=== PATIENT | male | born 1965 | race Caucasian/White ===

== ENCOUNTER 2022-04-19 14:18 | Emergency (ER) | payer OTHER ==
[~2022-04-19] VITALS: Ht 177.8 cm; Wt 77.1 kg
[2022-04-19] MEDS ORDERED: REMERON30 MG PO (14:33)
[2022-04-19] MEDS ORDERED: DULOXETINE HCL60 MG PO (14:34)
[2022-04-19] MEDS ORDERED: GABAPENTIN800 MG PO (14:34)
[2022-04-19] MEDS ORDERED: MELOXICAM15 MG PO (14:35)
[2022-04-19] MEDS ORDERED: PRAZOSIN HCL1 MG PO (14:36)
[2022-04-19] MEDS ORDERED: MECLIZINE HCL25 MG PO (14:36)
[2022-04-19] MEDS ORDERED: METHYLPREDNISOLO4 M1 PO (18:06)
[2022-04-19] MEDS ORDERED: HYDROCODON-ACE1 EA11 PO (18:06)
== END 2022-04-19 18:16 | disposition home or self-care (01) ==
LOC: ED 14:18
DX: M16.11 Unilateral primary osteoarthritis, right hip (principal); M54.12 Radiculopathy, cervical region; Z79.899 Other long term (current) drug therapy
CPT/HCPCS: 73502; 99283-25; A9270; J8540

== ENCOUNTER 2023-11-10 05:45 | Day surgery (SDC) | payer OTHER ==
[~2023-11-10] VITALS: Ht 177.8 cm; Wt 86.4 kg
[2023-11-10] VITALS (7 sets, daily range): BP systolic 140–164; BP diastolic 69–95
[~2023-11-10 05:45] MED LIST: CYCLOBENZAPRINE10 MG PO; DULOXETINE HCL60 MG PO; GABAPENTIN800 MG PO; HYDROCODON-ACE1 EA11 PO; HYDROXYZINE HCL50 MG PO; LACTATED RINGER'S 1,000 ML IV SCH; LIPITOR20 MG; MECLIZINE HCL25 MG PO; MELOXICAM15 MG PO; METHYLPREDNISOLO4 M1 PO; PRAZOSIN HCL1 MG PO; REMERON30 MG PO; VENTOLIN HFA18 GM INH
[2023-11-10] MEDS ORDERED: LIDOCAINE HCL 2% 5 ML SDV ONE ×2 (06:52)
[2023-11-10] MEDS ORDERED: MIDAZOLAM HCL 2 MG/2 ML VIAL ONE (06:52)
[2023-11-10] MEDS ORDERED: ondansetron HCL 4 MG/2 ML VIAL ONE (06:52)
[2023-11-10] MEDS ORDERED: propofoL 200 MG/20 ML VIAL ONE ×3 (06:52→08:39)
[2023-11-10] MEDS ORDERED: BUPIVACAINE 0.75% IN DEXTROSE 2 ML AMP ONE (06:52)
[2023-11-10] MEDS ORDERED: OXYCODONE HCL 5 MG TAB PO SCH (07:00)
[2023-11-10] MEDS ORDERED: CEFAZOLIN SODIUM 2 GM/20 ML SYR IV SCH (07:00)
[2023-11-10] MEDS ORDERED: INTRA-ARTICULAR ANALGESIC INJECTION XX SCH (07:00)
[2023-11-10] MEDS ORDERED: TRANEXAMIC ACID 2,000 MG in SODIUM CHLORIDE 0.9% 100 ML IV SCH (07:00)
[2023-11-10] MEDS ORDERED: PANTOPRAZOLE SODIUM 40 MG TABEC PO SCH (07:00)
[2023-11-10] MEDS ORDERED: LIDOCAINE HCL 1% 5 ML SDV INJ ONE (07:00)
[2023-11-10] MEDS ORDERED: ondansetron HCL 4 MG TAB PO SCH (07:00)
[2023-11-10] MEDS ORDERED: IBLOOD GLUCOSE TEST STRIP 1 EA TEST VI PRN ×2 (07:00→07:30)
[2023-11-10] MEDS ORDERED: GABAPENTIN 600 MG TAB PO SCH (07:00)
[2023-11-10] MEDS ORDERED: HYDROmorphone HCL 1 MG/ML SYR IV PRN (07:30)
[2023-11-10] MEDS ORDERED: ondansetron HCL 4 MG/2 ML VIAL IV PRN (07:30)
[2023-11-10] MEDS ORDERED: NALOXONE HCL 0.4 MG SYR IV PRN ×2 (07:30→09:00)
[2023-11-10] MEDS ORDERED: fentaNYL citrate 50 MCG/ML SDV IV PRN (07:30)
[2023-11-10] MEDS ORDERED: PROCHLORPERAZINE EDISYLATE 10 MG/2 ML VIAL IV PRN (07:30)
[2023-11-10] MEDS ORDERED: droPERidol 5 MG/2 ML VIAL IV PRN (07:30)
[2023-11-10] MEDS ORDERED: LACTATED RINGER'S 1,000 ML IV ONE (08:09)
[2023-11-10] MEDS ORDERED: KETOROLAC TROMETHAMINE 15 MG/ML VIAL IV PRN (09:00)
[2023-11-10] MEDS ORDERED: OXYCODONE HCL 5 MG TAB PO PRN (09:00)
[2023-11-10] MEDS ORDERED: GABAPENTIN 300 MG CAP PO SCH (09:00)
[2023-11-10] MEDS ORDERED: SENNOSIDES 1 TAB PO SCH (09:00)
[2023-11-10] MEDS ORDERED: DULOXETINE HCL 30 MG CAP PO SCH (09:00)
[2023-11-10] MEDS ORDERED: OXYCODONE HCL5 MG PO (09:06)
[2023-11-10] MEDS ORDERED: XARELTO10 MG PO (09:07)
--- NOTE | 2023-11-10 09:27 | NUR ---
11/10/23 0927 Breanna Balderrama 0902- PT ARRIVES TO PACU NONAROUSABLE TO STIMULI. PT SNORING. PT NEEDING A JAW THRUST BY ANOTHER RN TO MAINTAIN PATENT AIRWAY. SNORING CLEARS WITH JAW THRUST. RESP EVEN AND UNLABORED. OXYGEN SAT HIGH 90'S TO 100% ON 6L VIA MASK. 0905- PT'S RIGHT JORGE HOSE AND FOOT PUMP PLACED. 0913- PT AROUSABLE TO STIMULI. PT UPDATED THAT HIS PROCEDURE IT OVER. PT NODS HIS HEAD BUT IS UNABLE TO KEEP HIS EYES OPEN. XRAY AT THE BEDSIDE TO COMPLETE PELVIS XRAY. 0916- DR. CHRIS AT THE BEDSIDE TO SEE POST PELVIS XRAY. 0917- OXYGEN TITRATED OFF. 09- CRYOCUFF PLACED TO PT'S RIGHT HIP WITH GOWN AND BATH TOWEL BETWEEN SKIN AND CRYOCUFF. THIS COMPLETE WITH ASSISTANCE FROM ANOTHER RN. PT IS ABLE TO TURN IN THE BED TO ASSIST WELL.
[2023-11-10] MEDS ORDERED: TRANEXAMIC ACID IN NACL,ISO-OS 1,000 MG/100 ML PIGGYBACK IV ONE (09:38)
--- NOTE | 2023-11-10 10:15 | NUR ---
MADI 5148-PT BACK TO ROOM FROM PACU ON . RECEIVED REPORT FROM LINDSEY LOPEZ. PT IS AWAKE. RESP EVEN AND UNLABORED. DENIES PAIN AND NAUSEA. DRESSING IS CLEAN, DRY AND INTACT. CRYO CUFF IN PLACE AND RUNNING. PT DRINKING WATER. PROVIDED PT WITH APPLESAUCE. NO OTHER NEEDS AT THIS TIME. DARLIN BATISTA ON. CALL LIGHT WITHIN REACH.
--- NOTE | 2023-11-10 10:55 | OR ---
[facility] [address] [place] [address] Signed DATE OF OPERATION: 11/10/2023 SURGEON: Torrey Cerda MD PREOPERATIVE DIAGNOSIS: Severe degenerative joint disease, right hip. POSTOPERATIVE DIAGNOSIS: Severe degenerative joint disease, right hip. PROCEDURE PERFORMED: Right total hip arthroplasty with Elie. KEY HOLDER: Regina Flowers PA-C. Regina was present and critical for all portions of procedure. ANESTHESIA: Spinal. BLOOD LOSS: 140 mL. IMPLANTS: Dariusz size 5 Insignia stem, 54 trident cup and -5 head. BRIEF HISTORY: Judson is a 58-year-old gentleman with progressive worsening of osteoarthritis. Risks and benefits of operative treatment were discussed with him. He elected to proceed. DESCRIPTION OF PROCEDURE: Once consent was obtained, he was taken to the operating room. After adequate anesthesia, he was placed on the operating room table in the left lateral decubitus position. All downside pressure points were well padded. Axillary roll was placed. The right hip was then prepped and draped in a standard sterile fashion. The pins for the Elie system were then placed in the posterior half of the iliac crest with some difficulty. The iliac crest itself was quite rounded and had a little bit of trouble getting the pins started. Once this was completed, the hip was approached through a standard anterolateral incision, carried through the skin and subcutaneous tissue. The IT band was divided longitudinally. The vastus lateralis was then divided from the tip Electronically Signed By: TORREY CERDA MD 11/10/23 1055 PATIENT NAME: JUDSON ESQUIVEL OPERATIVE REPORT DATE OF : 69 REPORT #: [id number] PHYSICIAN: TORREY CERDA MD PCP: CALLIE ORTIZ REPORT IS CONFIDENTIAL AND NOT TO BE RELEASED WITHOUT AUTHORIZATION [facility] [address] [place], [place] [address] Signed of the trochanter along the anterior margin the femur distally. Subperiosteally it was then elevated around to the level of the lesser trochanter. The capsule was split from the tip of the trochanter to the acetabular rim along with the gluteus medius at its anterior most portion. This was then peeled off the anterior neck and arthrotomy was completed. The posterior capsule was extremely thickened. A partial capsulotomy was performed. The hip was then dislocated quite easily and the femoral neck cut made one fingerbreadth above the lesser trochanter. The femoral head was passed off the table. The periacetabular soft tissue was removed and the acetabulum was registered with the computer. Once this was completed, the robot was brought in. The acetabulum was reamed in a single pass using a 54 reamer up to the pre-registered depth. Once this was accomplished, all soft tissue was cleared from the acetabulum. The cup was impacted and the single 6.5 screw was placed in the posterior superior quadrant. The acetabular liner was then impacted into position and attention was turned to the proximal femur. The proximal femur was opened using jessica cutter followed by the Olegario awl. The lateralized reamer was utilized and the proximal femur was broached starting with 0 going up to a 5. The 5 was found to be well fitting and was stable. The high offset neck and initially a 0 and then a -5 head were positioned. The hip was reduced. Leg lengths were found to be good. He had excellent stability and a negative Shuck test. The trials were dislocated and removed. The final stem was then impacted to the same level and a -5 head was impacted. The hip was again reduced and taken through range of motion and found to be good. The hip and soft tissue were then thoroughly irrigated with Surgiphor followed by normal saline. Ree-incisional soft tissues were injected with 100 mL of ropivacaine and Toradol mixture. The capsule was then closed using #2 FiberWire. The vastus and IT band layers were closed independently using #2 Stratafix, 0 Stratafix for the subcutaneous tissue and 3-0 Stratafix for the skin. The wound was sealed with LiquiBand and Steri-Strips and dressed with an Acticoat-7 dressing. He was awakened, taken to the recovery room in satisfactory condition. All sponge, needle, and instrument counts were correct. Torrey Cerda MD BA/MODL /[id number] Electronically Signed By: TORREY CERDA MD 11/10/23 1055 PATIENT NAME: JUDSON ESQUIVEL OPERATIVE REPORT DATE OF : 69 REPORT #: [id number] PHYSICIAN: TORREY CERDA MD PCP: CALLIE ORTIZ REPORT IS CONFIDENTIAL AND NOT TO BE RELEASED WITHOUT AUTHORIZATION [address] [address] Signed Copies: ~ Electronically Signed By: TORREY CERDA MD 11/10/23 1055 PATIENT NAME: ALVINJUDSON MUIR OPERATIVE REPORT DATE OF : 69 REPORT #: [id number] PHYSICIAN: TORREY CERDA MD PCP: CALLIE ORTIZ REPORT IS CONFIDENTIAL AND NOT TO BE RELEASED WITHOUT AUTHORIZATION
--- NOTE | 2023-11-10 11:16 | NUR ---
LE 1100-PT LAYING IN BED AWAKE. RESP EVEN AND UNLABORED. DENIES PAIN. DRESSINGS ARE CLEAN, DRY, AND INTACT. CYRO CUFF IN PLACE AND RUNNING. PT DRINKING WATER. NO OTHER NEEDS AT THIS TIME. DECLINES LUNCH AT THIS TIME. CALL LIGHT WIHIN REACH.
[2023-11-10] MEDS ORDERED: TRANEXAMIC ACID 2,000 MG in SODIUM CHLORIDE 0.9% 100 ML IV ONE (12:00)
--- NOTE | 2023-11-10 12:43 | NUR ---
MADI 1158-PT LAYING IN BED AWAKE. RESP EVEN AND UNLABORED. DENIES PAIN AND NAUSEA. DRESSINGS CLEAN, DRY, AND INTACT. CRYO CUFF IN PLACE AND RUNNING. ORDER LUNCH FOR PT. NO OTHER NEEDS AT THIS TIME. CALL LIGHT WITHIN REACH.
--- NOTE | 2023-11-10 12:45 | NUR ---
LE 1212-PT IN PATIENTS ROOM. LE 1245-PT BACK TO ROOM FROM PHYSICAL THERAPY.
[2023-11-10] MEDS ORDERED: LIDOCAINE 2% VISCOUS 6 ML SYR MM ONE (14:15)
[2023-11-10] MEDS ORDERED: ACETAMINOPHEN 1,000 MG/100 ML VIAL IV ONE (15:45)
--- NOTE | 2023-11-10 16:04 | NUR ---
LE 1324-PT LAYING IN BED. RESP EVEN AND UNLABORED. DRESSINGS CLEAN, DRY, AND INTACT. PT DRINKING WATER. NO OTHER NEEDS AT THIS TIME. CALL LIGHT WITHIN REACH.
--- NOTE | 2023-11-10 16:09 | NUR ---
LE 1400-RATES PAIN 5/10. PT HAS NOT VOIDED AND DOES NOT FEEL THE SENSATION TO VOID. LE 1405-PT BLADDER SCANNED AND HIGHEST VOLUME RECORDED WAS 999+. PT HAD NO SENSATION TO VOID AND NO PAIN WITH BLADDER SCAN. LE 1410-PHONE CALL TO DR. CHRIS. VO TO CATH PT. LE 1416- ZENG CATH PLACED USING STERILE TECHNIQUE. ZENG CATH BALLOON INFLATED WITH 10ML OF SALINE. 850 DRAINED FROM BLADDER. 10ML OF SALINE DRAINED FROM ZENG CATH BALLOON. ZENG D/C'D WITHOUT DIFFICULTY. 1430-ENCOURAGED PT TO DRINK MORE FLUIDS. IV FLUIDS RESTARTED AND REMAINING 300ML OF LR GIVEN. CALL LIGHT WITHIN REACH.
--- NOTE | 2023-11-10 16:29 | NUR ---
LE 1535-PT STATES THE NEED TO VOID. PT AMBULATES WITH WALKER TO RESTROOM. GAIT STEADY AND TOLERATED WELL. PT VOIDS 50ML OF YELLOW URINE. LE 1538-PHONE CALL TO DR. CHRIS WITH AN UPDATE. DR. CHRIS WOULD LIKE TO KNOW THE POST VOID RESIDUAL. VO FOR IV ORIRMEV FOR PAIN CONTROL. LE 1540-PT BLADDER SCANNED. 44 ML REMAINING IN BLADDER. LE 1548-MEDICATION GIVEN PER EMAR. LE 1550-PHONE CALL TO DR CHRIS WITH AN UPDATE. WOULD LIKE PT TO TRY AND VOID AGAIN BEFORE LEAVING.
--- NOTE | 2023-11-10 16:53 | NUR ---
1640-PT LAYING IN BED AWAKE. RESP EVEN AND UNLABORED. RATES PAIN 4/10. DENIES NAUSEA. DRESSSINGS ARE CLEAN, DRY, AND INTACT. CRYO CUFF IN PLACE AND RUNNING. PT DOES NOT FEEL THE SENSATION TO VOID. 1645-PT UP AND AMBULATING WITH WALKER. GAIT STEADY AND TOLERATED WELL. 1650-PT SITTING AT BEDSIDE.
[2023-11-10] MEDS ORDERED: CEFAZOLIN SODIUM 2 GM/20 ML SYR IV ONE (17:30)
--- NOTE | 2023-11-10 17:47 | NUR ---
LE 1720-PT AMBULATES WITH WALKER TO RESTROOM. PT VOIDS 150ML OF YELLOW URNINE. 1725-PT BACK TO ROOM. PT GETTING DRESSED.
--- NOTE | 2023-11-10 17:47 | NUR ---
2800-PROVIDED PT WITH DISCHARGE INSTRUCTIONS. WENT OVER POSTOP MEDICATIONS. ALL QUESTIONS ANSWERED. PT RATES PAIN A 3/10. PT AMBULATES WITH WALKER TO WHEELCHAIR AND RIDE PROVIDED TO FRONT OF HOSPITAL WHERE FRIEND WAS WAITING WITH THE CAR.
== END 2023-11-10 17:40 | disposition home or self-care (01) ==
LOC: DS 05:45
PROVIDERS: ATTEND Specialist
PROC: 0SR90JA Replacement of Right Hip Joint with Synthetic Substitute, Uncemented, Open Approach (ICD-10-PCS; principal; 2023-11-10 07:00)
DX: M16.11 Unilateral primary osteoarthritis, right hip (principal); Z79.899 Other long term (current) drug therapy
CPT/HCPCS: 01214; 72170; 97161; A9270; C1713; C1776; J0131; J0690; J1885; J2001; J2250; J2405; J2704; J7121

== ENCOUNTER 2024-03-29 05:53 | Day surgery (SDC) | payer OTHER ==
[2024-03-23 09:28] VITALS: BP 143/97
[~2024-03-29] VITALS: Ht 177.8 cm; Wt 81.8 kg
[2024-03-29] VITALS (10 sets, daily range): BP systolic 124–160; BP diastolic 56–90
[~2024-03-29 05:53] MED LIST changes: +CYMBALTA30 MG PO; -DULOXETINE HCL60 MG PO; -GABAPENTIN800 MG PO; -LIPITOR20 MG; +LIPITOR20 MG PO; +NEURONTIN300 MG PO; +OXYCODONE HCL5 MG PO; -PRAZOSIN HCL1 MG PO; +PRAZOSIN HCL5 MG PO; +XARELTO10 MG PO
[2024-03-29] MEDS ORDERED: LIDOCAINE HCL 2% 5 ML SDV ONE ×2 (06:05→09:19)
[2024-03-29] MEDS ORDERED: BUPIVACAINE 0.75% IN DEXTROSE 2 ML AMP ONE (06:05)
[2024-03-29] MEDS ORDERED: KETAMINE in NS 50 MG/5 ML SYR ONE (06:06)
[2024-03-29] MEDS ORDERED: LACTATED RINGER'S 1,000 ML IV ONE (06:06)
[2024-03-29] MEDS ORDERED: FAMOTIDINE 20 MG/ 2 ML VIAL ONE (06:06)
[2024-03-29] MEDS ORDERED: ondansetron HCL 4 MG/2 ML VIAL ONE (06:06)
[2024-03-29] MEDS ORDERED: METOCLOPRAMIDE HCL 10 MG/2 ML SDV ONE (06:06)
[2024-03-29] MEDS ORDERED: propofoL 200 MG/20 ML VIAL ONE (06:06)
[2024-03-29] MEDS ORDERED: fentaNYL citrate 100 MCG/2 ML VIAL ONE (06:06)
[2024-03-29] MEDS ORDERED: KETOROLAC TROMETHAMINE 30 MG/ML VIAL ONE (06:06)
[2024-03-29] MEDS ORDERED: DEXAMETHASONE SOD PHOS 4 MG/ML VIAL ONE ×2 (06:06→09:19)
[2024-03-29] MEDS ORDERED: MIDAZOLAM HCL 2 MG/2 ML VIAL ONE (06:06)
[2024-03-29] MEDS ORDERED: SEVOFLURANE 250 ML BTL ONE (06:13)
[2024-03-29] MEDS ORDERED: TAMSULOSIN HCL 0.4 MG CAP ONE (06:36)
[2024-03-29] MEDS ORDERED: TAMSULOSIN HCL 0.4 MG CAP PO ONE (06:45)
[2024-03-29] MEDS ORDERED: INTRA-ARTICULAR ANALGESIC INJECTION XX SCH (07:00)
[2024-03-29] MEDS ORDERED: IBLOOD GLUCOSE TEST STRIP 1 EA TEST VI PRN ×2 (07:00→08:00)
[2024-03-29] MEDS ORDERED: GABAPENTIN 600 MG TAB PO SCH ×2 (07:00→21:00)
[2024-03-29] MEDS ORDERED: TRANEXAMIC ACID 2,000 MG in SODIUM CHLORIDE 0.9% 100 ML IV SCH (07:00)
[2024-03-29] MEDS ORDERED: PANTOPRAZOLE SODIUM 40 MG TABEC PO SCH (07:00)
[2024-03-29] MEDS ORDERED: ondansetron HCL 4 MG TAB PO SCH (07:00)
[2024-03-29] MEDS ORDERED: CEFAZOLIN SODIUM 2 GM/20 ML SYR IV SCH ×3 (07:00→16:00)
[2024-03-29] MEDS ORDERED: VANCOMYCIN HCL 1,000 MG in DEXTROSE 5% 250 ML IV SCH (07:00)
[2024-03-29] MEDS ORDERED: OXYCODONE HCL 5 MG TAB PO SCH (07:00)
[2024-03-29] MEDS ORDERED: LIDOCAINE HCL 1% 5 ML SDV INJ ONE (07:00)
[2024-03-29] MEDS ORDERED: dexmedeTOMIDine HCl 200 MCG/2 ML VIAL ONE (07:24)
[2024-03-29] MEDS ORDERED: METOPROLOL TARTRATE 5 MG/5 ML VIAL ONE (07:55)
[2024-03-29] MEDS ORDERED: PROCHLORPERAZINE EDISYLATE 10 MG/2 ML VIAL IV PRN (08:00)
[2024-03-29] MEDS ORDERED: METOCLOPRAMIDE HCL 10 MG/2 ML SDV IV PRN (08:00)
[2024-03-29] MEDS ORDERED: ondansetron HCL 4 MG/2 ML VIAL IV PRN (08:00)
[2024-03-29] MEDS ORDERED: fentaNYL citrate 50 MCG/ML SDV IV PRN (08:00)
[2024-03-29] MEDS ORDERED: droPERidol 5 MG/2 ML VIAL IV PRN (08:00)
[2024-03-29] MEDS ORDERED: MORPHINE SULFATE 10 MG/ML VIAL IV PRN (08:00)
[2024-03-29] MEDS ORDERED: NALOXONE HCL 0.4 MG SYR IV PRN (08:00)
[2024-03-29] MEDS ORDERED: hydrALAZINE HCL 20 MG/ML VIAL ONE (08:02)
[2024-03-29] MEDS ORDERED: ACETAMINOPHEN 1,000 MG/100 ML VIAL ONE (08:42)
[2024-03-29] MEDS ORDERED: OXYCODONE HCL 5 MG TAB PO PRN (08:45)
[2024-03-29] MEDS ORDERED: KETOROLAC TROMETHAMINE 30 MG/ML VIAL IV PRN (08:45)
[2024-03-29] MEDS ORDERED: CEFUROXIME250 MG PO (08:46)
[2024-03-29] MEDS ORDERED: DICLOFENAC SODI75 MG PO (08:46)
[2024-03-29] MEDS ORDERED: OXYCODONE HCL5 MG PO (08:46)
[2024-03-29] MEDS ORDERED: XARELTO10 MG PO (08:46)
[2024-03-29] MEDS ORDERED: Ropivacaine HCl 0.5% 30 ML VIAL ONE (09:19)
[2024-03-29] MEDS ORDERED: SODIUM CHLORIDE 0.9% 20 ML IV ONE (09:19)
[2024-03-29] MEDS ORDERED: TRANEXAMIC ACID 2,000 MG in SODIUM CHLORIDE 0.9% 100 ML IV ONE (09:30)
[2024-03-29] MEDS ORDERED: CloNIDine HCl/Pf 1,000 MCG/10 ML VIAL ONE (10:05)
[2024-03-29] MEDS ORDERED: BUPIVACAINE HCL 0.25% 30 ML SDV ONE (10:05)
[2024-03-29] MEDS ORDERED: GABAPENTIN 300 MG CAP PO SCH (15:00)
[2024-03-29] MEDS ORDERED: LIDOCAINE 2% VISCOUS 6 ML SYR ONE (16:28)
[2024-03-29] MEDS ORDERED: LIDOCAINE 2% VISCOUS 6 ML SYR TOP ONE (17:15)
[2024-03-29] MEDS ORDERED: ALBUTEROL SULFATE 0.083% 3 ML VIAL INH PRN (17:15)
[2024-03-29] MEDS ORDERED: MIRTAZAPINE 30 MG TAB PO SCH (21:00)
[2024-03-29] MEDS ORDERED: CYCLOBENZAPRINE HCL 10 MG TAB PO SCH (21:00)
[2024-03-30 00:44] VITALS: BP 130/75
[2024-03-30 06:03] VITALS: BP 140/67
[2024-03-30 06:05] VITALS: BP 140/67
--- NOTE | 2024-03-30 07:04 | OR ---
[facility] [address] [place], [place] [address] Signed DATE OF OPERATION: 03/29/2024 SURGEON: Torrey Cerda MD PREOPERATIVE DIAGNOSIS: Left hip degenerative joint disease. POSTOPERATIVE DIAGNOSIS: Left hip degenerative joint disease. PROCEDURE PERFORMED: Left total hip arthroplasty with Elie. PEDIATRIC AUDIOLOGIST: Regina Flowers PA-C. Regina was present and critical for all portions of the procedure. ANESTHESIA: Spinal. BLOOD LOSS: 175 mL. TOURNIQUET TIME: Zero. IMPLANTS: Dariusz Secur-Fit Advanced size 9 with a 52 mm cup and a +5 head, one 6.5 screw. BRIEF HISTORY: Judson is a 58-year-old gentleman with progressive worsening of osteoarthritis in his left hip. He had undergone right total hip earlier this year with good results and wished to proceed with the left. Risks, benefits, and alternatives were discussed. He understood, wished to proceed. PROCEDURE IN DETAIL: Once consent was obtained, he was taken to the operating room. After adequate anesthesia he was placed on operating room table. All downside pressure points were well padded. He was placed in right lateral decubitus position. Axillary roll was placed. The hip was prepped and draped in a standard sterile fashion and the Schanz Electronically Signed By: TORREY CERDA MD 03/30/24 0704 PATIENT NAME: JUDSON ESQUIVEL OPERATIVE REPORT DATE OF : 69 REPORT #: [id number] PHYSICIAN: TORREY CERDA MD PCP: CALLIE ORTIZ REPORT IS CONFIDENTIAL AND NOT TO BE RELEASED WITHOUT AUTHORIZATION [facility] [address] [place], [place] [address] Signed pins for the GCW computer array were placed in the posterior half of the iliac crest. The hip was then approached through standard anterior lateral approach. A 6-inch incision was taken through skin and subcutaneous tissue. The IT band was divided longitudinally. The vastus lateralis was divided from the tip of the trochanter distally along the anterior femoral line. This was elevated subperiosteal around to the level of the lesser trochanter. The capsule and medius were split from the tip of the trochanter anteriorly to the acetabular rim. This was then peeled off the femoral neck. The superior capsule was then released in the saddle. We were unable to dislocate the hip safely. The femoral neck cut was then made in situ and napkin ring of the femoral neck was removed. The femoral head was then removed with ease. The periacetabular soft tissue was removed. The acetabulum was then registered with the computer and the robot was brought in. The acetabulum was reamed with a 52 until it was well-seated. We had excellent cortical bleeding. The cup was then impacted into position at 40 degrees of abduction and 22 degrees of anteversion. The single screw was placed in the posterior superior quadrant. The liner was then impacted until it was well-seated. Attention was turned to proximal femur. Proximal femur was opened using jessica cutter followed by the Olegario awl. It was then reamed sequentially with the lateralize reamer. We then attempted to broach, however, it was too tight distally. We then reamed with the 01/29 and 03/02 drill and then seated the 9 broach down to where it was well seated and stable. The +5 head was placed on it and the hip was reduced. His leg lengths were still a bit short compared to the opposite side, which are little bit long. The hip was quite stable with a negative Shuck test. We then dislocated the hip, removed the trials. The final stem was impacted until it was well seated and stable. +5 head was positioned on it and the hip was reduced. Range of motion 110 degrees of flexion with 30 of internal and external rotation. No impingement was noted. The wound was copiously irrigated with one bottle of Surgiphor followed by an L of normal saline. The periarticular soft tissues were injected with 100 mL of ropivacaine and Toradol mixture. The capsule was then closed using #2 FiberWire. The vastus and IT band layers were closed independently using #2 Stratafix. The subcu was closed with 2-0 Stratafix and skin with 3-0 Stratafix. The wound was dressed with an Acticoat-7 dressing. He was awakened, taken to the recovery room in satisfactory condition. All sponge, needle, and instrument counts were correct. Torrey Cerda MD BA/MODL /[id number] Electronically Signed By: TORREY CERDA MD 03/30/24 0704 PATIENT NAME: JUDSON ESQUIVEL OPERATIVE REPORT DATE OF : 69 REPORT #: [id number] PHYSICIAN: TORREY CERDA MD PCP: CALLIE ORTIZ REPORT IS CONFIDENTIAL AND NOT TO BE RELEASED WITHOUT AUTHORIZATION [address] [address] Signed Copies: ~ Electronically Signed By: TORREY CERDA MD 03/30/24 0704 PATIENT NAME: JUDSON ESQUIVEL WOOD OPERATIVE REPORT DATE OF : 69 REPORT #: [id number] PHYSICIAN: TORREY CERDA MD PCP: CALLIE ORTIZ REPORT IS CONFIDENTIAL AND NOT TO BE RELEASED WITHOUT AUTHORIZATION
[2024-03-30] MEDS ORDERED: VITAMIN D325 MCG PO (07:47)
[2024-03-30] MEDS ORDERED: CYCLOBENZAPRINE HCL 10 MG TAB PO PRN (08:00)
[2024-03-30] MEDS ORDERED: Rivaroxaban 10 MG TAB PO SCH (08:00)
[2024-03-30] MEDS ORDERED: DICLOFENAC SOD 75 MG TABEC PO SCH (08:00)
[2024-03-30] MEDS ORDERED: DULOXETINE HCL 60 MG CAP PO SCH (09:00)
[2024-03-30] MEDS ORDERED: POLYETHYLENE GLYCOL 3350 1 PACKET PO SCH (09:00)
[2024-03-30] MEDS ORDERED: cefuroxime axetiL 250 MG TAB PO SCH (09:00)
[2024-03-30] MEDS ORDERED: DULOXETINE HCL 30 MG CAP PO SCH (09:00)
[2024-03-30] MEDS ORDERED: PRAZOSIN HCL 5 MG CAP PO SCH (09:00)
[2024-03-30 09:04] VITALS: BP 155/76
[2024-03-30 09:42] VITALS: BP 155/76
[2024-03-30] MEDS ORDERED: ATORVASTATIN 20 MG TAB PO SCH (17:00)
== END 2024-03-30 11:30 | disposition home or self-care (01) ==
LOC: DS 05:53 → MS 16:30 → DS 03-30 11:30
PROVIDERS: ATTEND Specialist
PROC: 0SRB0JZ Replacement of Left Hip Joint with Synthetic Substitute, Open Approach (ICD-10-PCS; principal; 2024-03-29 07:00)
DX: M16.12 Unilateral primary osteoarthritis, left hip (principal); F43.10 Post-traumatic stress disorder, unspecified; Z79.899 Other long term (current) drug therapy; Z90.49 Acquired absence of other specified parts of digestive tract
CPT/HCPCS: 01214; 72170; 97161; 97530; A9270; C1713; C1776; J0131; J0360; J0690; J0735; J1100; J1885; J2001; J2003; J2250; J2405; J2704; J2765; J2795; J3010; J3490; J7121